=== PATIENT | female | born 1980 | race Caucasian/White ===

== ENCOUNTER → 2020-01-26 10:23 | Outpatient (BNVA) | payer OTHER, SELFPAY | PROVIDERS: PCP Nurse Practitioner Adult Health; Visit Provider Surgery | DX: G54.0 Brachial plexus disorders (principal) | CPT/HCPCS: 99204 ==

== ENCOUNTER 2020-03-08 08:45 | Outpatient (REF) | payer OTHER, SELFPAY ==
--- NOTE | 2020-03-08 09:02 | XR_ITS ---
EXAMINATION: XR CHEST CLINICAL INFORMATION: Right complex cyst disorders. COMPARISON: None TECHNIQUE: 2 views of the chest were obtained. FINDINGS: The lungs including lung apices are clear. The heart and mediastinal structures are unremarkable. The visualized osseous structures are unremarkable. XR/XR chest 2V IMPRESSION: No acute cardiopulmonary process.
== END 2020-03-08 08:46 | disposition home or self-care (01) ==
LOC: HO.XRAY 08:45
PROVIDERS: PCP Nurse Practitioner Adult Health; Visit Provider Surgery
DX: G54.0 Brachial plexus disorders (principal)
CPT/HCPCS: 71046; 99212

== ENCOUNTER → 2020-03-22 11:59 | Outpatient (BNVA) | payer OTHER, SELFPAY | PROVIDERS: PCP Nurse Practitioner Adult Health; Visit Provider Surgery | DX: G54.0 Brachial plexus disorders (principal) | CPT/HCPCS: 99212 ==

== ENCOUNTER 2020-04-26 09:42 | Outpatient (REF) | payer OTHER, SELFPAY ==
--- NOTE | 2020-04-26 09:47 | XR_ITS ---
EXAMINATION: XR CHEST CLINICAL INFORMATION: Brachial plexus disorder COMPARISON: Previous chest x-ray February 2020 cervical spine MRI August 2019 TECHNIQUE: 2 views of the chest were obtained. FINDINGS: The cardiac and mediastinal contours are normal. The lungs are clear. There is no pleural effusion or pneumothorax. There has been partial resection of the left first rib. Bony structures are otherwise unremarkable. XR/XR chest 2V IMPRESSION: Postoperative change following partial resection of the left first rib. No evidence for acute disease in the chest.
== END 2020-04-26 09:43 | disposition home or self-care (01) ==
LOC: HO.XRAY 09:42
PROVIDERS: PCP Nurse Practitioner Adult Health; Visit Provider Surgery
DX: Z48.89 Encounter for other specified surgical aftercare (principal); G54.0 Brachial plexus disorders
CPT/HCPCS: 71046; 99212

== ENCOUNTER → 2020-05-10 10:21 | Outpatient (BNVA) | payer OTHER, SELFPAY | PROVIDERS: PCP Nurse Practitioner Adult Health; Visit Provider Surgery | DX: G54.0 Brachial plexus disorders (principal) | CPT/HCPCS: 99212 ==

== ENCOUNTER → 2020-05-15 14:10 | Outpatient (BNVA) | payer OTHER, SELFPAY | PROVIDERS: PCP Nurse Practitioner Adult Health; Visit Provider Anesthesiology | DX: G54.0 Brachial plexus disorders (principal); M47.812 Spondylosis without myelopathy or radiculopathy, cervical region; M50.30 Other cervical disc degeneration, unspecified cervical region | CPT/HCPCS: 99202 ==

== ENCOUNTER 2020-05-28 07:02 | Outpatient (REF) | payer OTHER, SELFPAY ==
--- NOTE | ~2020-05-28 | FL_ITS ---
EXAMINATION: XR FLUOROSCOPY WITH IMAGES CLINICAL INFORMATION: Spondylosis without myelopathy or radiculopathy, cervical region COMPARISON: None. TECHNIQUE: Fluoroscopy performed by Mary Cardona NP. Fluoroscopy time: 0.6 minutes DAP: 0.8 Gycm2 Images: 6 FINDINGS: Images demonstrate needle placement and contrast injection adjacent to the bilateral lateral cervical vertebral bodies at the C3-C4, C4-C5 and C5-C6 levels. FL/FL guidance in treatment room IMPRESSION: Fluoroscopy guidance for cervical spine injection.
== END 2020-05-28 07:03 | disposition home or self-care (01) ==
LOC: HO.RADIR 07:02
PROVIDERS: Visit Provider Anesthesiology
DX: M47.812 Spondylosis without myelopathy or radiculopathy, cervical region (principal); M50.30 Other cervical disc degeneration, unspecified cervical region
CPT/HCPCS: 64490; 64491; Q9967

== ENCOUNTER → 2020-06-06 11:45 | Outpatient (BNVA) | payer OTHER, SELFPAY | PROVIDERS: PCP Nurse Practitioner Adult Health; Visit Provider Anesthesiology ==

== ENCOUNTER → 2020-06-20 09:17 | Outpatient (BNVA) | payer OTHER, SELFPAY | PROVIDERS: PCP Nurse Practitioner Adult Health; Visit Provider Anesthesiology | DX: M47.812 Spondylosis without myelopathy or radiculopathy, cervical region (principal); M50.30 Other cervical disc degeneration, unspecified cervical region; Z79.899 Other long term (current) drug therapy | CPT/HCPCS: 99212 ==

== ENCOUNTER → 2020-06-21 09:45 | Outpatient (BNVA) | payer OTHER, SELFPAY | PROVIDERS: PCP Nurse Practitioner Adult Health; Visit Provider Surgery | DX: G54.0 Brachial plexus disorders (principal) | CPT/HCPCS: 99215 ==

== ENCOUNTER → 2020-07-08 16:05 | Outpatient (BNVA) | payer OTHER, SELFPAY | PROVIDERS: PCP Nurse Practitioner Adult Health; Visit Provider Anesthesiology | DX: G54.0 Brachial plexus disorders (principal); M47.812 Spondylosis without myelopathy or radiculopathy, cervical region; M50.30 Other cervical disc degeneration, unspecified cervical region | CPT/HCPCS: 99212 ==

== ENCOUNTER → 2020-08-07 14:42 | Outpatient (BNVA) | payer OTHER, SELFPAY | PROVIDERS: PCP Nurse Practitioner Adult Health; Visit Provider Anesthesiology | DX: G54.0 Brachial plexus disorders (principal); M47.812 Spondylosis without myelopathy or radiculopathy, cervical region; M50.30 Other cervical disc degeneration, unspecified cervical region | CPT/HCPCS: 99212 ==

== ENCOUNTER → 2020-08-30 09:42 | Outpatient (BNVA) | payer OTHER, SELFPAY | PROVIDERS: PCP Nurse Practitioner Adult Health; Visit Provider Surgery | DX: G54.0 Brachial plexus disorders (principal) | CPT/HCPCS: 99212 ==

== ENCOUNTER → 2020-11-08 09:20 | Outpatient (BNVA) | payer OTHER, SELFPAY | PROVIDERS: PCP Nurse Practitioner Adult Health; Visit Provider Surgery | DX: G54.0 Brachial plexus disorders (principal); Z79.899 Other long term (current) drug therapy | CPT/HCPCS: 99212 ==